=== PATIENT | female | born 1970 | race Hispanic/Latino ===

== ENCOUNTER 2017-08-31 13:35 | Observation (INO) | payer SELFPAY, OTHER ==
[2017-08-31] MEDS ORDERED: Nitroglycerin 2% Ointment 1 INCH/1 GM Packet ONE (14:08)
[2017-08-31 14:26] LABS: #Eosinphils 0.1 thou/uL (0.0-0.7); #Lymphocytes 1.6 thou/uL (1.20-3.40); #Monocytes 0.2 thou/uL (0.11-0.59); #Neutrophils 3.5 thou/uL (1.40-6.50); %Basophils 0.8 % (0.0-1.0); %Eosinophils 1.5 % (0.0-10.0); %Lymphocytes 29.8 % (21.0-51.0); %Monocytes 4.4 % (0.0-10.0); %Neutrophils 63.6 % (42.0-75.0); Hemoglobin 16.4 g/dL (12.0-16.0); Mean Corpuscular Hemoglobin 29.8 pg (27.0-31.0); Mean Corpuscular Volume 85.1 fl (81.0-99.0); Mean Platelet Volume 7.1 fL (7.4-10.4); Platelet Count 292 thou/uL (130-400); RBC Distribution Width 12.4 % (11.5-14.5); Red Blood Cell (RBC) Count 5.49 mill/uL (4.20-5.40); White Blood Cell (WBC) Count 5.4 thou/uL (4.8-10.8)
[2017-08-31 14:47] LABS: ALT (SGPT) 32 U/L (8-55); AST (SGOT) 18 U/L (5-34); Albumin 4.6 g/dL (3.5-5.0); Alkaline Phosphatase 125 U/L (40-150); Anion Gap 14 mmol/L (10-20); BUN (Urea Nitrogen) 14 mg/dL (7.0-18.7); Bilirubin, Total 0.6 mg/dL (0.2-1.2); CK (CPK) 45 U/L (29-168); Calc. Creatinine Clearance 0 mL/min (70-130); Calcium 11.1 mg/dL (7.8-10.44); Carbon Dioxide 24 mmol/L (22-29); Chloride 103 mmol/L (98-107); Estimated GFR-MDRD 87; Globulin 3.5 g/dL (2.4-3.5); Glucose 287 mg/dL (70-105); Lipase 17 U/L (8-78); Potassium 3.6 mmol/L (3.5-5.1); Protein, Total 8.1 g/dL (6.0-8.3); Sodium 137 mmol/L (136-145)
--- NOTE | 2017-08-31 14:48 | RAD ---
RADIOGRAPH CHEST 1 VIEW: HISTORY: 47-year-old female with acute chest pain and hypertension. FINDINGS: There are no air space densities, pulmonary edema, pneumothorax, or cardiomegaly. The lateral costop hrenic angles are sharp. IMPRESSION: No acute cardiopulmonary findings. jn [] POS: [facility]
[2017-08-31 14:51] LABS: CKMB 0.6 ng/mL (0-6.6); Troponin I Less than 0.010 ng/mL (< 0.028)
[2017-08-31] MEDS ORDERED: Acetaminophen 500 MG TAB ONE (15:31)
[2017-08-31] MEDS ORDERED: Dextrose 50% Abboject 50 ML SYRINGE SLOW IVP PRN (16:31)
[2017-08-31] MEDS ORDERED: Mag-Al 1200 mg/1200 mg/30 ML UDCUP PO PRN (16:31)
[2017-08-31] MEDS ORDERED: hydrALAZINE 20 MG/ML VIAL SLOW IVP PRN (16:31)
[2017-08-31] MEDS ORDERED: Ondansetron HCl/PF 4 MG/2 ML Vial IVP PRN (16:31)
[2017-08-31] MEDS ORDERED: Dextrose 5% in Water 1,000 ML IV PRN (16:31)
[2017-08-31] MEDS ORDERED: Milk Of Magnesia 30 ML UDCUP PO PRN (16:31)
[2017-08-31] MEDS ORDERED: HumaLOG 300 UNITS/3 ML VIAL SC PRN ×2 (16:31)
[2017-08-31] MEDS ORDERED: Acetaminophen 325 MG TAB PO PRN (16:31)
[2017-08-31] MEDS ORDERED: Ondansetron ODT 4 MG TAB PO PRN (16:31)
[2017-08-31 16:49] VITALS: BMI 26.6
[2017-08-31] MEDS: Sodium Chloride 0.9% 1,000 ML IV SCH (17:46)
[2017-08-31 17:49] LABS: Troponin I Less than 0.010 ng/mL (< 0.028)
[2017-08-31 18:09] LABS: Thyroid Stimulating Hormone 0.3958 uIU/mL (0.35-4.94)
[2017-08-31 18:35] LABS: Free T4 (Free Thyroxine) 1.03 ng/dL (0.70-1.48)
[2017-08-31] MEDS: Docusate 100 MG CAP PO SCH (19:43)
[2017-08-31 20:39] LABS: Troponin I Less than 0.010 ng/mL (< 0.028)
[2017-08-31] MEDS: clonazePAM 0.5 MG TAB PO PRN (20:55)
[2017-08-31] MEDS: Nitroglycerin 2% Ointment 1 INCH/1 GM Packet TOP SCH (20:58)
--- NOTE | 2017-08-31 21:06 | HP ---
PRIMARY CARE PHYSICIAN: Dr. Andrea Joel. CHIEF COMPLAINT: Generalized fatigue and malaise as well as chest pain and fluctuating blood pressur es. HISTORY OF PRESENT ILLNESS: Ms. Segura is a very pleasant 47-year-old female that has a history of hy pertension and diabetes mellitus. She says that in the last 2 weeks she has been feeling very weak. She has aches and pains across her shoulders as well as having some lower abdominal pain. She says that she had seen her primary care physician without much relief in her symptoms and when asked what made her come in today. She says that she was concerned because she started having some cramping lik e pains in her left upper chest. She also noticed that her blood pressure seems to be fluctuating, g oing up and down and she would have to take an additional blood pressure medicine to control it. She also was feeling palpitations and some nausea. She also noted some dyspnea on exertion and also fat igue when she walks and this is why she came to the ER today. She also notes that she has been on me dication for stress and anxiety. She had been on clonazepam, but she has been out of this medication for a couple of days, but does note that the medication does help her symptoms, but she wants to mitzy e sure that there was nothing else going on. The patient also was complaining of some lower abdomina l pain. She feels like there is some type of ball in her abdomen. She says she can sometimes feel i t and she also notes some pain with intercourse. She denies having any bleeding or discharge or spot ting, no pain with urination and her last menstrual cycle was about 2 years ago. She has not sought medical attention for this particular problem before. REVIEW OF SYSTEMS: Constitutional: Again, there have been no fevers, no chills, no night sweats, no weight loss. HEENT: She denies any headaches, no dizziness, but she does say sometimes she sees li ke spots in her eyes and sometimes every now and then, blurred vision, no sore throat, no rhinorrhea, no neck pain. Pulmonary: No hemoptysis, no cough, no wheezing. Cardiovascular: As the history of present illness. Gastrointestinal: She complains of some lower abdominal pain, primarily on the le ft side as well as some nausea, but no vomiting, no change in bowels. Genitourinary: No urinary fransisco quency, hematuria, no hesitancy. Neurologic: No focal weakness. She did have some numbness in her left upper extremity and a little bit of tingling, but no weakness. Musculoskeletal: She has been c omplaining of some muscle aches and pains across her upper shoulders. Extremities: There are no ski n changes. No rash. PAST MEDICAL HISTORY: Significant for hypertension and she has been diabetic for 14 years. PAST SURGICAL HISTORY: She has had a cholecystectomy as well as a . ALLERGIES: No known drug allergies. SOCIAL HISTORY: She is a nonsmoker, nondrinker. She is and has 2 children. FAMILY HISTORY: Her father had an IL at age 68. No other medical conditions that they are aware of. MEDICATIONS: Include lisinopril 10 mg daily, metformin 500 mg twice a day, glyburide 2.5 mg daily, c lonazepam p.r.n., aspirin 81 mg daily. She also takes potassium, omega 3, and vitamin D. PHYSICAL EXAMINATION: GENERAL: She is alert and oriented. She appears to be in no acute distress. VITAL SIGNS: Blood pressure was 154/89, heart rate 87, respiratory rate of 18, and temperature is 98 .2. HEENT: Her pupils are equal, round, and reactive. Extraocular muscles are intact. Her sclerae are anicteric. Throat: No erythema, no exudates. NECK: No adenopathy, no bruits. LUNGS: Clear. There was no wheezing, no rales. CARDIOVASCULAR: She had a normal S1, S2. There was no S3 or S4. No murmurs, clicks or rubs. ABDOMEN: Soft. She did have some lower abdominal tenderness, but there was no rebound or guarding. I was not able to palpate any mass. EXTREMITIES: There is no clubbing, cyanosis, no edema, no significant skin lesions except for a mild excoriation on the left lower extremity. Her pulses are palpable and neurologically the exam is non focal. LABORATORY DATA: White blood cell count is 5.4, hemoglobin 16.4, hematocrit is 46.7, platelet count is 292. Sodium 137, potassium 3.6, chloride is 103, CO2 is 24, BUN of 14, creatinine 0.72, glucose i s 287. Calcium was slightly elevated at 11.1. EKG actually was sinus rhythm. There was no ST wave changes. It was a normal EKG and her troponin w as 0.010. ASSESSMENT AND PLAN: 1. This is a 47-year-old female that presents to the emergency room with multiple somatic complaints , which are more or less nonspecific. She did, however, complain of some chest discomfort and arm pa in along with the palpitations and some dyspnea. Given that she is diabetic and also hypertensive. It does seem reasonable to rule out ischemic heart disease as she could suffer from some atypical sym ptoms. Also, concerning is the slight elevation in the calcium level, which I would not suspect, wou ld be symptomatic, but we can also check an intact PTH to screen for hyperparathyroidism. 2. Also, some of her symptoms could be associated with thyroid disease and we will screen for this a s well. 3. Hypertension. She states she has been having fluctuating blood pressures. We will continue her on her usual dose of lisinopril and monitor and also place her on p.r.n. medications. We will adjust her dose if needed. 4. Diabetes mellitus. We will hold off on the metformin, but continue the glyburide and place her o n a sliding scale insulin. For the abdominal pain and pelvic pain, we will check an abdominal and pe lvic ultrasound and she will likely need to be referred to an outpatient evaluation to a sports specialist .
[2017-09-01 05:02] LABS: Anion Gap 8 mmol/L (10-20); BUN (Urea Nitrogen) 13 mg/dL (7.0-18.7); Calc. Creatinine Clearance 117 mL/min (70-130); Calcium 9.7 mg/dL (7.8-10.44); Carbon Dioxide 24 mmol/L (22-29); Chloride 110 mmol/L (98-107); Estimated GFR-MDRD Greater than 90; Glucose 310 mg/dL (70-105); Potassium 3.9 mmol/L (3.5-5.1); Sodium 138 mmol/L (136-145)
[2017-09-01] MEDS: Nitroglycerin 2% Ointment 1 INCH/1 GM Packet TOP SCH ×2 (05:37→14:26)
[2017-09-01] MEDS: Sodium Chloride 0.9% 1,000 ML IV SCH (05:59)
[2017-09-01] MEDS ORDERED: Aspirin 325 MG TAB PO SCH (09:00)
[2017-09-01] MEDS ORDERED: Lisinopril 10 MG TAB PO SCH (09:00)
--- NOTE | 2017-09-01 09:25 | ULT ---
PELVIC SONOGRAM TRANSABDOMINAL AND TRANSVAGINAL IMAGING: Date: 09/01/17 HISTORY: Pelvic pain. FINDINGS: Urinary bladder is decompressed. Uterus has a heterogeneous echotexture and is 8.7 cm. Endometrium is 1.6 cm. Small amount of fluid is apparent within the lower uterine segment and cervical canal. Nabot hian cysts arise from the cervix. At the left uterine fundus, a heterogeneous hypoechoic nodule is 1. 8 cm. No free fluid is evident within the pelvis. Neither ovary is visualized with transabdominal or transv aginal imaging. IMPRESSION: 1. Thickened endometrium with a small amount of fluid, 2. Mild fibroid involvement of the uterus. POS: [facility]
--- NOTE | 2017-09-01 09:28 | ULT ---
ULTRASOUND ABDOMEN COMPLETE: Date: 09/01/17 HISTORY: Abdominal pain. History of prior cholecystectomy. TECHNIQUE: Luu-scale ultrasound evaluation of the liver, gallbladder, spleen, pancreas, common bile duct, kidne ys, abdominal aorta, and inferior vena cava (IVC). FINDINGS: No focal hepatic lesion. Gallbladder is surgically absent. Spleen is unremarkable. Common duct measur es greater than 1.0 cm, although this may be related to reservoir effect, in light of prior cholecyst ectomy. Pancreas is obscured from view by bowel content, limiting assessment. No acute renal patholog y. There is decreased acoustic penetration of the abdomen which does limit sensitivity of evaluation due to patient body habitus. IMPRESSION: 1. Status post cholecystectomy. 2. No focal hepatic lesion. There is a slight degree of increased echogenicity, which can be seen in the setting of hepatic steatosis and/or hepatocellular disease. Correlation with liver function enzy mes may prove useful. POS: [facility]
--- NOTE | 2017-09-01 12:40 | PDOC.PN ---
- Subjective Encounter Start Date: 09/01/17 Encounter Start Time: 12:37 Ms. Segura says that when she woke up this morning she notes a blurred vision in her right eye. She says when she turns her head, she will see double, the left eye is normal. She denies any weakness in her arms or legs. - Objective Resuscitation Status: Resuscitation Status FULL:Full Resuscitation MAR Reviewed: Yes Vital Signs & Weight: Vital Signs (12 hours) Temp Pulse Resp BP BP Pulse Ox 09/01/17 12:05 97.9 F 95 16 167/78 H 96 09/01/17 07:56 97.7 F 60 16 09/01/17 07:34 97.7 F 60 16 114/59 L 97 09/01/17 04:17 82 16 98/59 L 09/01/17 02:13 99 Weight Weight 155 lb 1.6 oz I&O: 08/31/17 09/01/17 09/02/17 06:59 06:59 06:59 Intake Total 1274 Balance 1274 Result Diagrams: 08/31/17 14:17 09/01/17 04:27 Additional Labs: Accuchecks 09/01/17 08/31/17 08/31/17 05:38 20:42 17:33 POC Glucose 266 H 241 H 223 H Phys Exam - Physical Examination HEENT: PERRLA, sclera anicteric EOMI- bilaterally Respiratory: no wheezing, no rales, no rhonchi, clear to auscultation bilateral Cardiovascular: RRR, no significant murmur, no rub Gastrointestinal: soft, non-tender, no distention, positive bowel sounds Musculoskeletal: no edema Dx/Plan (1) Blurred vision, right eye Code(s): H53.8 - OTHER VISUAL DISTURBANCES Status: Acute (2) Diabetes mellitus type 2 in nonobese Code(s): E11.9 - TYPE 2 DIABETES MELLITUS WITHOUT COMPLICATIONS Status: Acute (3) Hyperparathyroidism Code(s): E21.3 - HYPERPARATHYROIDISM, UNSPECIFIED Status: Acute (4) Hypertension Code(s): I10 - ESSENTIAL (PRIMARY) HYPERTENSION Status: Acute (5) Chest pain Code(s): R07.9 - CHEST PAIN, UNSPECIFIED Status: Acute - Plan * Blurred vision- suspect this is due to elevated blood glucose- however will check a CT scan of the brain * Chest pain- await stress test results * Elevated calcium- this is better with hydration- but her parathyroid hormone level is elevated, and there is no renal disease- she likely has Primary Hyperparathyroidism- This was discussed with the patient, and daughter helped to translate- she will need outpatient Endocrinology referral. This could also explain some of her somatic complaints * HTN- blood pressure is much improved * DM- blood glucose is elevated- will need to increase her dose of Glyburide .
--- NOTE | 2017-09-01 12:42 | NM ---
RADIONUCLIDE STRESS AND REST MYOCARDIAL PERFUSION SCAN WITH CT ATTENUATION CORRECTION AND SPECT IMAGI NG WITH LEFT VENTRICULAR WALL MOTION EVALUATION AND EJECTION FRACTION: HISTORY: Chest pain. FINDINGS: Francis protocol was used for a total test time of 7 minutes and 0 seconds. Maximum heart rate was 151 beats/minute. There is heterogeneous uptake of radiotracer throughout the left ventricular myocardium on both the s tress and rest images. No focal perfusion defect or reversibility are apparent. QGS analysis of gated SPECT images shows no focal wall motion abnormalities. TID equals 1.1. LHR equa ls 37%. Left ventricular ejection fraction is calculated at 71%. IMPRESSION: 1. Normal myocardial perfusion scan. 2. Normal LVEF. POS: [facility]
--- NOTE | 2017-09-01 13:15 | CT ---
CT HEAD NONCONTRAST DATE: 09/01/17 HISTORY: Vision abnormality. FINDINGS: No comparison. There is no evidence of acute intracranial hemorrhage or infarct. The ventricles appear normal in siz e, shape, and position. There is no mass effect or shift of midline structures. Visualized paranasal sinuses remain well aerated. IMPRESSION: No acute intracranial abnormalities are demonstrated on noncontrast CT head. POS: [facility]
[2017-09-01] MEDS: Docusate 100 MG CAP PO SCH (14:26)
[2017-09-01 15:49] VITALS: BP 146/80; TEMP 98.5
[2017-09-01] MEDS: clonazePAM 0.5 MG TAB PO PRN (16:02)
--- NOTE | 2017-09-01 23:57 | DIS ---
PRIMARY CARE PHYSICIAN: Andrea Joel M.D. DATE OF ADMISSION: 08/31/2017 DATE OF DISCHARGE: 09/01/2017 DISCHARGE DISPOSITION: Home. PRIMARY DISCHARGE DIAGNOSES: 1. Chest pain, probable noncardiac. 2. Primary hyperparathyroidism. 3. Diabetes mellitus, uncontrolled. 4. Hypertension, uncontrolled. 5. Generalized anxiety. DISCHARGE MEDICATIONS: Please note that the patient's blood pressure medication was increased to lis inopril 10 mg in the morning and 5 in the evening, glipizide was also increased to 5 mg daily. She i s to continue metformin 500 mg twice daily as well as clonazepam 0.5 mg twice daily as needed, and as pirin 81 mg daily. PROCEDURES DONE DURING ADMISSION: The patient had a CT scan of the brain which was negative. She al so had an abdominal ultrasound as well as pelvic ultrasound. The abdominal ultrasound was essentiall y negative. There was some increased echogenicity of the liver, possibly representing steatosis. Th e patient also had a pelvic ultrasound which demonstrated some thickened endometrium with small amoun t of fluid and a mild fibroid involving fibroid involvement of the uterus. The patient also had a nu clear stress test which was negative for any reversible ischemia and also had a normal ejection fract ion and the patient also had a CT scan of the brain which was negative. It was noted that the patien t's calcium on admission was 11.1 and an intact PTH was done which was elevated at 167. HOSPITAL COURSE: Ms. Segura is a pleasant 47-year-old female who was placed in observation after she was experiencing some generalized somatic complaints such as fatigue, muscle aches, and generalized w eakness. She also was having some palpitations and chest pain. She also noted fluctuations in her b lood pressure. For this reason, she was placed in observation. She was ruled out by serial cardiac enzymes which were negative. She had a nuclear stress test done to evaluate the chest pain. This wa s negative and I suspect this likely could be musculoskeletal. She also complained of some visual ch anges while she was in the hospital. A CT scan was done which was negative and it is thought that th e blurred vision that she experiences likely due to poorly controlled diabetes. For this reason, gly buride was increased from 2.5 to 5 and she was to continue metformin. In the course of her evaluatio n, it was noted that her calcium level was elevated. A PTH was done and this was also elevated and s he likely therefore has primary hyperparathyroidism as her renal function is normal. The calcium lev el improved after hydration back to 9.7. However, this is likely to be a continuing problem and for this reason, she was instructed to follow up with Endocrinology to get a parathyroid scan and she may also need to have a partial parathyroidectomy. Also, due to fluctuations in her blood pressure, her dose of lisinopril was increased from 10 mg daily to 10 mg in the morning and 5 in the evening, and she is also once again instructed to have close outpatient followup for this.
--- NOTE | 2017-09-03 13:35 | STRESS ---
Acquisition Time: 2017-09-01 10:36:17 Total Exercise Time: 00:07:00 Test Indications: CHEST PAIN Medications: Protocol: ELIZABETH Max HR: 151 BPM 86% of Pred: 174 BPM Max BP: 172/104 mmHG Max Work Load: 7.7 METS RESTING ECG: NORMAL SINUS RHYTHM AT 99 BPM WITH LEFT AXIS DEVIATION; POOR R-WAVE PROGRESSION SYMPTOMS: NONE NORMAL BP RESPONSE ECTOPY: NONE ECG STRESS: NO SIGNIFICANT CHANGES INTERPRETATION: NEGATIVE ECG/AWAIT NUCLEAR IMAGES FOR DEFINITIVE DIAGNOSIS Confirmed by SIMI VALDES ([id number]) on 09/03/2017 1:35:08 PM Referred By: Darryl CHUN Confirmed By:SIMI VALDES
--- NOTE | 2017-10-11 13:59 | EKG ---
Test Reason : CHESTPAIN Blood Pressure : / mmHG Vent. Rate : 090 BPM Atrial Rate : 090 BPM P-R Int : 196 ms QRS Dur : 092 ms QT Int : 358 ms P-R-T Axes : 035 -07 032 degrees QTc Int : 437 ms Normal sinus rhythm Normal ECG Confirmed by MICHELLE CHOUDHURY, FEI ([id number]), features editor TEX MENDOZA ([id number]) on 10/11/2017 1:59:01 PM Referred By: MICHELLE Confirmed By:FEI MARTINEZ MD
== END 2017-09-01 16:55 | disposition home or self-care (01) ==
LOC: ERS 13:35 → EDBD 15:37 → 2SW 15:37
PROVIDERS: ADMIT Internal Medicine; ATTEND Internal Medicine
DX: R07.9 Chest pain, unspecified (principal); E21.0 Primary hyperparathyroidism; E11.9 Type 2 diabetes mellitus without complications; I10 Essential (primary) hypertension; F41.1 Generalized anxiety disorder; H53.8 Other visual disturbances; Z79.84 Long term (current) use of oral hypoglycemic drugs; Z79.82 Long term (current) use of aspirin; Z79.899 Other long term (current) drug therapy
CPT/HCPCS: 36415; 36416; 70450; 71045; 76700; 76856; 78452; 80048; 80053; 82553; 83690; 83880; 83970; 84439; 84443; 84484; 85025; 85652; 93005; 93017; 94760; 96360; 96361; A9500; G0378

== ENCOUNTER 2019-11-17 01:26 | Emergency (ER) | payer SELFPAY ==
[2019-11-17 02:18] LABS: #Basophils 0.1 thou/uL (0.0-0.2); #Eosinphils 0.2 thou/uL (0.0-0.7); #Monocytes 0.3 thou/uL (0.11-0.59); #Neutrophils 3.2 thou/uL (1.40-6.50); %Basophils 1.7 % (0.0-1.0); %Eosinophils 3.3 % (0.0-10.0); %Lymphocytes 43.7 % (21.0-51.0); %Monocytes 4.8 % (0.0-10.0); %Neutrophils 46.5 % (42.0-75.0); Hemoglobin 14.9 g/dL (12.0-16.0); Mean Corpuscular HGB CONC 35.3 g/dL (32.0-36.0); Mean Corpuscular Hemoglobin 30.7 pg (27.0-31.0); Mean Corpuscular Volume 87.1 fL (78.0-98.0); Mean Platelet Volume 7.7 fL (7.4-10.4); Platelet Count 279 thou/uL (130-400); RBC Distribution Width 12.1 % (11.5-14.5); Red Blood Cell (RBC) Count 4.84 mill/uL (4.20-5.40); White Blood Cell (WBC) Count 6.9 thou/uL (4.8-10.8)
[2019-11-17 02:45] LABS: ALT (SGPT) 57 U/L (8-55); AST (SGOT) 22 U/L (5-34); Albumin 4.6 g/dL (3.5-5.0); Alkaline Phosphatase 109 U/L (40-110); Anion Gap 13 mmol/L (10-20); BUN (Urea Nitrogen) 12 mg/dL (7.0-18.7); Bilirubin, Total 0.3 mg/dL (0.2-1.2); Calc. Creatinine Clearance 0 mL/min (70-130); Calcium 11.2 mg/dL (7.8-10.44); Carbon Dioxide 26 mmol/L (22-29); Chloride 100 mmol/L (98-107); Estimated GFR-MDRD 82; Globulin 3.4 g/dL (2.4-3.5); Glucose 394 mg/dL (70-105); Potassium 3.7 mmol/L (3.5-5.1); Sodium 135 mmol/L (136-145)
[2019-11-17] MEDS ORDERED: Acetaminophen 500 MG TAB ONE ×2 (03:48)
[2019-11-17 06:01] LABS: Troponin I 0.011 ng/mL (< 0.028)
--- NOTE | 2019-11-17 09:08 | RAD ---
CHEST ONE VIEW: History: Left sided chest pain Comparison: 08-31-18 IMPRESSION: No acute cardiopulmonary abnormality. COMMENTS: The lungs are clear. Heart size is normal. No acute osseous abnormality is evident. POS: [facility]
--- NOTE | 2019-11-22 10:17 | EKG ---
Test Reason : Blood Pressure : / mmHG Vent. Rate : 092 BPM Atrial Rate : 092 BPM P-R Int : 188 ms QRS Dur : 088 ms QT Int : 364 ms P-R-T Axes : 037 -05 046 degrees QTc Int : 450 ms Normal sinus rhythm Cannot rule out Anterior infarct , age undetermined Abnormal ECG Confirmed by TEODORA VARGAS ([id number]), clinical editor BRIDGETT HOLMAN ([id number]) on 11/22/2019 10:17:26 AM Referred By: Confirmed By:TEODORA VARGAS
== END 2019-11-17 06:17 | disposition home or self-care (01) ==
LOC: ERS 01:26
DX: R07.9 Chest pain, unspecified (principal); I10 Essential (primary) hypertension; E11.9 Type 2 diabetes mellitus without complications; F41.9 Anxiety disorder, unspecified; Z79.82 Long term (current) use of aspirin; Z79.899 Other long term (current) drug therapy
CPT/HCPCS: 36415; 71045; 80053; 84484; 85025; 93005

== ENCOUNTER 2020-02-25 06:00 | Day surgery (SDC) | payer OTHER, SELFPAY ==
[2020-02-22 14:23] VITALS: BMI 28.1
[2020-02-25] MEDS ORDERED: Fentanyl 250 MCG/5 ML VIAL ONE (06:33)
[2020-02-25] MEDS ORDERED: Lidocaine 4% Topical Sol 50 ML BOT ONE (06:33)
[2020-02-25] MEDS ORDERED: Albuterol Sulfate HFA (OR ONLY) ONE (06:33)
[2020-02-25] MEDS ORDERED: Lidocaine 1% w/Epinephrine 1:100K 20 ML VIAL ONE (06:48)
[2020-02-25] MEDS ORDERED: Midazolam HCl 2 mg/2 ml Vial ONE (07:04)
[2020-02-25] MEDS ORDERED: Acetaminophen 500 MG TAB ONE (07:05)
[2020-02-25] MEDS ORDERED: EPHEDRINE 25 MG/5 ML SYRINGE ONE (10:21)
[2020-02-25] MEDS ORDERED: PHENYLEPHRINE-NS 100 MCG/ML 10 ML SYRINGE ONE (10:21)
[2020-02-25] MEDS ORDERED: Rocuronium Bromide 10 MG/ML (10ML VIAL) ONE (10:21)
[2020-02-25] MEDS ORDERED: Ondansetron PF 4 MG/2 ML Vial ONE ×2 (10:21→10:49)
[2020-02-25] MEDS ORDERED: Ketorolac Tromethamine 30 MG/ML VIAL ONE (10:21)
[2020-02-25] MEDS ORDERED: PROPOFOL 200 MG/20 ML VIAL ONE (10:21)
[2020-02-25] MEDS ORDERED: Succinylcholine Chloride 20 MG/ML 10 ml SYRINGE FS ONE (10:21)
[2020-02-25] MEDS ORDERED: Lidocaine 1% PF 5 ML VIAL ONE (10:21)
[2020-02-25] MEDS ORDERED: Fentanyl 100 MCG/2 ML VIAL ONE (10:40)
[2020-02-25] MEDS ORDERED: Hydrocodone-Acetamin 15 ML UDCUP ONE (12:29)
--- NOTE | 2020-02-25 13:21 | EKG ---
Test Reason : PREOP Blood Pressure : / mmHG Vent. Rate : 083 BPM Atrial Rate : 083 BPM P-R Int : 198 ms QRS Dur : 092 ms QT Int : 374 ms P-R-T Axes : 035 000 056 degrees QTc Int : 439 ms Normal sinus rhythm Normal ECG No previous ECGs available Confirmed by HAYLEY QUISPE ([id number]) on 02/25/2020 1:21:28 PM Referred By: CURT Confirmed By:HAYLEY QUISPE
--- NOTE | 2020-02-26 14:26 | OP ---
DATE OF PROCEDURE: 02/25/2020 PREOPERATIVE DIAGNOSES: 1. Primary hyperparathyroidism. 2. Parathyroid adenoma. 3. Anxiety. POSTOPERATIVE DIAGNOSES: 1. Primary hyperparathyroidism. 2. Parathyroid adenoma. 3. Anxiety. PROCEDURES PERFORMED: 1. Anterior neck dissection. 2. Parathyroidectomy. PROCEDURE IN DETAIL: After consent was obtained, the patient was identified, brought to the operating room and placed on the operating room table in supine position. General laryngeal nerve monitoring and endotracheal tube were placed and documented to be functioning and the patient was positioned for surgery. The neck was prepped and draped in a sterile fashion. The natural skin crease in the lower neck was infiltrated with 1% lidocaine and 1:200,000 epinephrine. Previous Radian parathyroid scan revealed an abnormality in the midportion of the anterior neck. We made an incision and carried it down through the skin, subcutaneous tissues, and platysma. Subplatysmal flaps were elevated inferiorly and superiorly and a self-retaining retractor was placed. We then the strap muscles bilaterally and retracted them. We then the strap muscles from the thyroid capsule and was able to mobilize the thyroid medially as the strap muscles and were retracted laterally. We then performed a systematic search of the anterior neck and removed. I identified both recurrent laryngeal nerves and both parathyroids and the inferior parathyroid gland. No dominant parathyroid adenoma as had been imaged several years ago was identified. The dissection was carried down inferior to the mediastinum and portion of the thymus was removed as well. Dissection extended inferiorly to the subclavian artery and both sternocleidomastoid muscles. No other abnormalities were identified. The recurrent laryngeal nerves were preserved and inferior parathyroid glands were removed and sent for histologic evaluation. Hemostasis was obtained. Examination of additional parathyroid glands failed to reveal any abnormalities. The wound was closed in layers with the strap muscles being reapproximated as well as the platysma and the skin was closed with an absorbable running permanent suture. Steri-Strips were applied as well as a sterile dressing. The patient was awakened, extubated, and taken to recovery room in a stable condition prior to discharge home. Job ID: [id number]
== END 2020-02-25 13:25 | disposition home or self-care (01) ==
LOC: SDC 06:00
PROVIDERS: ATTEND Specialist
PROC: 0GTP0ZZ Resection of Left Inferior Parathyroid Gland, Open Approach (ICD-10-PCS; principal; 2020-02-25)
PROC: 0GTN0ZZ Resection of Right Inferior Parathyroid Gland, Open Approach (ICD-10-PCS; principal; 2020-02-25)
DX: D35.1 Benign neoplasm of parathyroid gland (principal); E21.0 Primary hyperparathyroidism; F41.9 Anxiety disorder, unspecified; I10 Essential (primary) hypertension; E11.9 Type 2 diabetes mellitus without complications; Z79.82 Long term (current) use of aspirin; Z79.84 Long term (current) use of oral hypoglycemic drugs; Z79.899 Other long term (current) drug therapy; Z88.5 Allergy status to narcotic agent
CPT/HCPCS: 36416; 88305; 88331; 93005; 93010; J1885; J2250; J2405; J2704; J3010

== ENCOUNTER 2020-04-20 10:37 | Observation (INO) | payer SELFPAY ==
[2020-04-20] MEDS ORDERED: Aspirin 325 MG TAB ONE (11:13)
[2020-04-20 11:23] LABS: #Basophils 0.1 thou/uL (0.0-0.2); #Eosinphils 0.1 thou/uL (0.0-0.7); #Lymphocytes 1.8 thou/uL (1.20-3.40); #Monocytes 0.3 thou/uL (0.11-0.59); #Neutrophils 2.6 thou/uL (1.40-6.50); %Basophils 1.6 % (0.0-1.0); %Eosinophils 2.5 % (0.0-10.0); %Lymphocytes 36.7 % (21.0-51.0); %Monocytes 5.7 % (0.0-10.0); %Neutrophils 53.6 % (42.0-75.0); Hemoglobin 14.3 g/dL (12.0-16.0); Mean Corpuscular Hemoglobin 30.9 pg (27.0-31.0); Mean Corpuscular Volume 88.4 fL (78.0-98.0); Mean Platelet Volume 7.5 fL (7.4-10.4); Platelet Count 293 thou/uL (130-400); RBC Distribution Width 11.7 % (11.5-14.5); Red Blood Cell (RBC) Count 4.62 mill/uL (4.20-5.40); White Blood Cell (WBC) Count 4.9 thou/uL (4.8-10.8)
--- NOTE | 2020-04-20 11:39 | RAD ---
EXAM: CHEST ONE VIEW HISTORY: Chest pain. High blood pressure and diabetes. COMPARISON: 11/17/2019 FINDINGS: The cardiac silhouette and pulmonary vasculature are within normal limits. The lungs are clear. The o sseous structures are intact. IMPRESSION: No acute cardiopulmonary process.
[2020-04-20 12:03] LABS: ALT (SGPT) 19 U/L (8-55); AST (SGOT) 11 U/L (5-34); Alkaline Phosphatase 107 U/L (40-110); Anion Gap 13 mmol/L (10-20); BUN (Urea Nitrogen) 11 mg/dL (7.0-18.7); Bilirubin, Total 0.6 mg/dL (0.2-1.2); Calc. Creatinine Clearance 0 mL/min (70-130); Calcium 10.2 mg/dL (7.8-10.44); Carbon Dioxide 26 mmol/L (22-29); Chloride 102 mmol/L (98-107); Estimated GFR-MDRD 84; Glucose 363 mg/dL (70-105); Potassium 3.9 mmol/L (3.5-5.1); Protein, Total 7.1 g/dL (6.0-8.3); Sodium 137 mmol/L (136-145)
[2020-04-20] MEDS ORDERED: Acetaminophen 325 MG TAB PO PRN (12:11)
[2020-04-20] MEDS ORDERED: Ondansetron ODT 4 MG TAB PO PRN (12:11)
[2020-04-20 12:22] LABS: Albumin 3.9 g/dL (3.5-5.0); Globulin 3.1 g/dL (2.4-3.5)
[2020-04-20] MEDS ORDERED: HumaLOG 300 UNITS/3 ML VIAL SC PRN (12:38)
[2020-04-20] MEDS ORDERED: Dextrose 50% Abboject 50 ML SYRINGE SLOW IVP PRN (12:38)
[2020-04-20] MEDS ORDERED: Dextrose 5% in Water 1,000 ML IV PRN (12:38)
--- NOTE | 2020-04-20 13:21 | PDOC.FPRHP ---
- History of Present Illness Chief Complaint: Chest Pain History of Present Illness: Pt is a 49 yo F with pmh of IDDM2, HTN, Hyperparathyroidism 2/2 Midline Adenoma with Hypercalcemia, Anxiety, HLD, Migraine, Generalized weakness, Panic Disorder who presents for chest pain. She was driving her daughter to work and had co ffee. She says after that she felt pressure in her stomach and she felt faint. She said she pulled into a parking spot and took Lisinopril and Propanolol (20 mg tab veces daily) and Clonazepam. She says she checked her blood pressure (160/103) and it was high, so she called EMS. She had similar pain 2-3 years ago. When she had this episode they thought it was related to stress and gave her anxiety medication at that time. The pain feels like a pressure in her upper abdomen, where she feels short of breath. The pain goes to to her back and left side. The pain previously was a 8-9/10, now the pain is 0/10 The pain was associated with nausea and dizziness. She says she has no pain in her abdomen now it is in her head and knee that feels like tension. The pain was improved by what she was given by EMS: nitro and zofran. She states she had a stress test 3-4 years ago. She states she is never had to have stents or surgeries does not believe that she has any coronary disease at this time. ED Course: EMS gave Zofran and Nitro paste In the ED, she was given ASA. - Allergies/Adverse Reactions Allergies Allergy/AdvReac Type Severity Reaction Status Date / Time morphine Allergy Intermediate Rash Verified 02/22/20 14:17 - Home Medications Medication Instructions Recorded Confirmed Type Lisinopril [Zestril] 20 mg PO DAILY 08/31/17 04/20/20 History metFORMIN [Glucophage] 1,000 mg PO BID 08/31/17 04/20/20 History clonazePAM [Klonopin] 0.5 mg PO BID PRN #30 tab 09/01/17 04/20/20 Rx Aspirin [Aspirin EC] 81 mg PO QAM 02/22/20 04/20/20 History Propranolol HCl [Inderal] 20 mg PO PRN PRN 02/22/20 04/20/20 History glipiZIDE [Glucotrol XL] 5 mg PO BID 02/22/20 04/20/20 History Insulin Glargine,Hum.Rec.Anlog 24 units SQ QAM 04/20/20 04/20/20 History [Lantus] hydrOXYzine HCl [Hydroxyzine HCl] 25 mg PO Q6H PRN 04/20/20 04/20/20 History - History PMHx: IDDM2, HTN, Hyperparathyroidism 2/2 Midline Adenoma with Hypercalcemia, Anxiety, HLD, Migraine, Panic Disorder PSHx: Thyroidy Surgery (02/24), x2 20 years ago, Cholecystecotomy as a teen FHx: Father: Heart Attack from at 63 years of age, Brother: Cirrhosis Social: No alcohol, tobacco, or recreational drugs - Review of Systems General: reports: weight/appetite/sleep changes (She has lost 14 lbs in 6 pains). denies: fever/chills Eyes: denies: vision changes ENT: denies: nasal congestion, rhinorrhea Respiratory: denies: cough, shortness of breath Cardiovascular: denies: chest pain, edema Gastrointestinal: reports: nausea (for 4 days after eating greasy foods). denies: vomiting, diarrhea, constipation, abdominal pain Genitourinary: denies: dysuria Skin: reports: other (discoloration of the right foot when something fell on her foot). denies: rashes Musculoskeletal: reports: pain (She has muscular pain). denies: tenderness Neurological: reports: numbness (in her feet due to diabetes). denies: weakness Psychological: reports: anxiety - Vital signs BP: 146/91 HR: 74 RR: 16 Pox: 97% on RA Wt: 65.77 kg Temp: 98.9 - Physical Exam Constitutional: NAD HEENT: normocephalic and atraumatic, PERRLA, EOMI, conjunctiva clear, no scleral icterus, normal nasal mucosa, MMM, oropharynx clear Neck: supple Chest: no-tender to palpation Heart: RRR, normal S1/S2 Lungs: CTAB, no respiratory distress, good air movement, no rales/rhonchi, no wheezing Abdomen: soft, non-tender Musculoskeletal: normal structure, normal tone Neurological: no focal deficit, CN II-XII intact, normal sensation Skin: no rash/lesions, good turgor Heme/Lymphatic: no unusual bruising or bleeding Psychiatric: normal mood and affect FMR H&P: Results - Labs Result Diagrams: 04/20/20 11:11 04/20/20 11:11 Lab results: WBC 4.9 thou/uL (4.8-10.8) 04/20/20 11:11 Hgb 14.3 g/dL (12.0-16.0) 04/20/20 11:11 Hct 40.9 % (36.0-47.0) 04/20/20 11:11 MCV 88.4 fL (78.0-98.0) 04/20/20 11:11 Plt Count 293 thou/uL (130-400) 04/20/20 11:11 Neutrophils % 53.6 % (42.0-75.0) 04/20/20 11:11 Sodium 137 mmol/L (136-145) 04/20/20 11:11 Potassium 3.9 mmol/L (3.5-5.1) 04/20/20 11:11 Chloride 102 mmol/L (98-107) 04/20/20 11:11 Carbon Dioxide 26 mmol/L (22-29) 04/20/20 11:11 BUN 11 mg/dL (7.0-18.7) 04/20/20 11:11 Creatinine 0.74 mg/dL (0.6-1.1) 04/20/20 11:11 Glucose 363 mg/dL (70-105) H 04/20/20 11:11 Calcium 10.2 mg/dL (7.8-10.44) 04/20/20 11:11 Total Bilirubin 0.6 mg/dL (0.2-1.2) 04/20/20 11:11 AST 11 U/L (5-34) 04/20/20 11:11 ALT 19 U/L (8-55) 04/20/20 11:11 Alkaline Phosphatase 107 U/L (40-110) 04/20/20 11:11 Serum Total Protein 7.1 g/dL (6.0-8.3) 04/20/20 11:11 Albumin 3.9 g/dL (3.5-5.0) 04/20/20 11:11 - EKG Interpretation EKG: No ST changes FMR H&P: A/P - Problem List (1) HLD (hyperlipidemia) Current Visit: Yes Status: Acute Code(s): E78.5 - HYPERLIPIDEMIA, UNSPECIFIED (2) Anxiety Current Visit: Yes Status: Acute Code(s): F41.9 - ANXIETY DISORDER, UNSPECIFIED (3) Migraine Current Visit: Yes Status: Acute Code(s): G43.909 - MIGRAINE, UNSP, NOT INTR ACTABLE, WITHOUT STATUS MIGRAINOSUS (4) Panic disorder Current Visit: Yes Status: Acute Code(s): F41.0 - PANIC DISORDER [EPISODIC PAROXYSMAL ANXIETY] (5) Chest pain Current Visit: No Status: Acute Code(s): R07.9 - CHEST PAIN, UNSPECIFIED (6) Diabetes mellitus type 2 in nonobese Current Visit: No Status: Acute Code(s): E11.9 - TYPE 2 DIABETES MELLITUS WITHOUT COMPLICATIONS (7) Hyperparathyroidism Current Visit: No Status: Acute Code(s): E21.3 - HYPERPARATHYROIDISM, UNSPECIFIED (8) Hypertension Current Visit: No Status: Acute Code(s): I10 - ESSENTIAL (PRIMARY) HYPERTENSION - Plan Pt is a 49 yo F with pmh of IDDM2, HTN, Hyperparathyroidism 2/2 Midline Adenoma with Hypercalcemia, Anxiety, HLD, Migraine, Generalized weakness, Panic Disorder who presents for chest pain. 1. Atypical Chest Pain Upper abdomen, pressure, radiates to back & left chest * Improved with Nitro & Zofran * Trop: < 0.01, will trend * EKG: No ST changes * HEART Score: 2 * D-dimer ordered for suspicious history * Lipase & Amylase order * Will get stress tomorrow. 2. IDDM2 Continue home medication: Lantus, Metformin, Glipizide * Will hold Metformin & Glipizide in the am * SSI, mild * Glucose checks ACHS 3. HTN Continue home medication: Lisinopril * Will continue to monitor 4. Hyperparathyroidism 2/2 Midline Adenoma with Hypercalcemia * Both inferior parathyroid glands were removed * Pt no longer has hypercalcemia 5. Anxiety Continue home mediation: Klonopin and Hydroxyzine 6. HLD Lipid Panel: Chol: 200, Tri, HDL: 50, LDL: 125 7.Migraine Not currently on medication * Will monitor 8. Weight Loss 14 lbs in 6 months * She is concerned * Labs are normal * Should follow up outpatient for monitoring Code Status: Full Diet: CC, HH IVF: SL DVT PPx: Lovenox GI PPx: None PCP: GILMA Mar Dispo: Admit to tele obs for stress, LOS < 48H. FMR H&P: Upper Level - Plan Date/Time: 04/20/20 1319 I, [], have evaluated this patient and agree with findings/plan as outlined by marketing pr intern resident. Pertinent changes/additions are listed here. Addendum - Attending - Attending Attestation Date/Time: 04/20/20 8120 I personally evaluated the patient and discussed the management with Dr. Oconnor. I agree with the History, Examination, Assessment and Plan documented above with any addition or exceptions noted below. Patient admits with abdominal pain that radiates to the back and into the chest. Trending cardiac enzymes. Planning for stress test to further evaluate. Starting statin.
[2020-04-20 14:43] LABS: Troponin I Less than 0.010 ng/mL (< 0.028)
[2020-04-20] MEDS ORDERED: HumaLOG 300 UNITS/3 ML VIAL SC SCH (15:00)
[2020-04-20] MEDS ORDERED: Enoxaparin Sodium 40 MG/0.4 ML SYRINGE SC SCH (15:00)
[2020-04-20] MEDS ORDERED: hydrOXYzine 25 MG TAB PO PRN (15:08)
[2020-04-20] MEDS ORDERED: Atorvastatin Calcium 40 MG TAB PO SCH (15:45)
[2020-04-20] MEDS ORDERED: Enoxaparin Sodium 40 MG/0.4 ML SYRINGE ONE (16:12)
[2020-04-20] MEDS ORDERED: HumaLOG 300 UNITS/3 ML VIAL ONE (16:12)
[2020-04-20] MEDS ORDERED: metFORMIN 500 MG TAB PO SCH (17:00)
[2020-04-20 17:21] VITALS: BMI 23.2
[2020-04-20] MEDS: clonazePAM 0.5 MG TAB PO PRN (18:02)
[2020-04-20 18:07] LABS: Troponin I Less than 0.010 ng/mL (< 0.028)
[2020-04-20] MEDS: Atorvastatin Calcium 40 MG TAB PO SCH (21:35)
[2020-04-21 03:48] LABS: SARS-CoV-2 MS2 Positive; SARS-CoV-2 N Gene Negative; SARS-CoV-2 S Gene Negative; SARS-CoV-2 by NAA Not Detected (NotDetected); SARS-CoV-2 orf1ab Negative
[2020-04-21 04:35] LABS: #Basophils 0.1 thou/uL (0.0-0.2); #Eosinphils 0.2 thou/uL (0.0-0.7); #Lymphocytes 3.6 thou/uL (1.20-3.40); #Monocytes 0.5 thou/uL (0.11-0.59); #Neutrophils 2.9 thou/uL (1.40-6.50); %Basophils 1.8 % (0.0-1.0); %Eosinophils 2.8 % (0.0-10.0); %Lymphocytes 49.2 % (21.0-51.0); %Monocytes 6.6 % (0.0-10.0); %Neutrophils 39.5 % (42.0-75.0); Hemoglobin 13.6 g/dL (12.0-16.0); Mean Corpuscular HGB CONC 34.7 g/dL (32.0-36.0); Mean Corpuscular Hemoglobin 30.6 pg (27.0-31.0); Mean Corpuscular Volume 88.2 fL (78.0-98.0); Mean Platelet Volume 7.5 fL (7.4-10.4); Platelet Count 321 thou/uL (130-400); RBC Distribution Width 11.9 % (11.5-14.5); Red Blood Cell (RBC) Count 4.46 mill/uL (4.20-5.40); White Blood Cell (WBC) Count 7.2 thou/uL (4.8-10.8)
[2020-04-21 04:54] LABS: Anion Gap 13 mmol/L (10-20); BUN (Urea Nitrogen) 17 mg/dL (7.0-18.7); Calc. Creatinine Clearance 0 mL/min (70-130); Calcium 10.5 mg/dL (7.8-10.44); Carbon Dioxide 25 mmol/L (22-29); Chloride 105 mmol/L (98-107); Estimated GFR-MDRD 86; Glucose 332 mg/dL (70-105); Sodium 139 mmol/L (136-145)
--- NOTE | 2020-04-21 06:57 | PDOC.FM ---
- Subjective Subjective: Pt states that her anxiety is uncontrolled. She feels her heart racing. She has no pain this morning. - Objective MAR Reviewed: Yes Vital Signs & Weight: Vital Signs (12 hours) Temp Pulse Resp BP Pulse Ox 04/21/20 03:16 98.3 F 74 17 107/63 97 04/20/20 20:00 98.2 F 78 16 130/81 97 Weight Weight 145.3 g I&O: 04/19/20 04/20/20 04/21/20 06:59 06:59 06:59 Intake Total 480 Balance 480 Result Diagrams: 04/21/20 04:04 04/21/20 04:04 EKG Reviewed by me: Yes (SR 80) Phys Exam - Physical Examination Constitutional: NAD HEENT: moist MMs, sclera anicteric Neck: supple Respiratory: no wheezing, no rales, no rhonchi, clear to auscultation bilateral Cardiovascular: RRR, no significant murmur Gastrointestinal: soft, non-tender, positive bowel sounds Musculoskeletal: no edema, pulses present Neurological: moves all 4 limbs Lymphatic: no nodes Dx/Plan (1) HLD (hyperlipidemia) Code(s): E78.5 - HYPERLIPIDEMIA, UNSPECIFIED Status: Acute (2) Anxiety Code(s): F41.9 - ANXIETY DISORDER, UNSPECIFIED Status: Acute (3) Migraine Code(s): G43.909 - MIGRAINE, UNSP, NOT INTRACTABLE, WITHOUT STATUS MIGRAINOSUS Status: Acute (4) Panic disorder Code(s): F41.0 - PANIC DISORDER [EPISODIC PAROXYSMAL ANXIETY] Status: Acute (5) Chest pain Code(s): R07.9 - CHEST PAIN, UNSPECIFIED Status: Acute (6) Diabetes mellitus type 2 in nonobese Code(s): E11.9 - TYPE 2 DIABETES MELLITUS WITHOUT COMPLICATIONS Status: Acute (7) Hyperparathyroidism Code(s): E21.3 - HYPERPARATHYROIDISM, UNSPECIFIED Status: Acute (8) Hypertension Code(s): I10 - ESSENTIAL (PRIMARY) HYPERTENSION Status: Acute - Plan Plan: Pt is a 49 yo F with pmh of IDDM2, HTN, Hyperparathyroidism 2/2 Midline Adenoma with Hypercalcemia, Anxiety, HLD, Migraine, Generalized weakness, Panic Disorder who presents for chest pain. 1. Atypical Chest Pain Upper abdomen, pressure, radiates to back & left chest * Improved with Nitro & Zofran * Trop: < 0.01 x2 * EKG: No ST changes * HEART Score: 2 * D-dimer ordered for suspicious history * Lipase & Amylase order * Will get stress tomorrow. 2. IDDM2 Continue home medication: Lantus, Metformin, Glipizide * Will hold Metformin & Glipizide in the am * SSI, mild * Glucose checks ACHS 3. HTN Continue home medication: Lisinopril * Will continue to monitor 4. Hyperparathyroidism 2/2 Midline Adenoma with Hypercalcemia * Both inferior parathyroid glands were removed * Pt no longer has hypercalcemia 5. Anxiety Continue home mediation: Klonopin and Hydroxyzine 6. HLD Lipid Panel: Chol: 200, Tri, HDL: 50, LDL: 125 7.Migraine Not currently on medication * Will monitor 8. Weight Loss 14 lbs in 6 months * She is concerned * Labs are normal * Should follow up outpatient for monitoring Code Status: Full Diet: CC, HH IVF: SL DVT PPx: Lovenox GI PPx: None PCP: GILMA Mar Dispo: Stress today. Held metformin & glipizide. Will d/c if normal. Adding on Sertraline Addendum - Attending - Attending Attestation Date/Time: 04/21/20 0411 I personally evaluated the patient and discussed the management with Dr. Oconnor. I agree with the History, Examination, Assessment and Plan documented above with any addition or exceptions noted below. The patient is very anxious this morning. Adding SSRI, recommended propranolol regularly. If stress test is negative, will d/c home.
[2020-04-21] MEDS ORDERED: FLU VACC QS2020-21(6MOS UP)/PF 60 MCG/0.5 ML SYRINGE IM ONE (09:00)
[2020-04-21] MEDS ORDERED: Insulin Glargine 24 UNITS in Pre-Filled Syringe 1 EACH SC SCH (09:00)
[2020-04-21] MEDS ORDERED: Insulin Glargine 28 UNITS in Pre-Filled Syringe 1 EACH SC SCH (09:45)
[2020-04-21] MEDS: Enoxaparin Sodium 40 MG/0.4 ML SYRINGE SC SCH (13:17)
[2020-04-21] MEDS: Lisinopril 20 MG TAB PO SCH (13:18)
[2020-04-21] MEDS: Aspirin 81 mg Enteric Coated Tablet PO SCH (13:18)
[2020-04-21] MEDS: clonazePAM 0.5 MG TAB PO PRN (17:36)
[2020-04-21] MEDS: HumaLOG 300 UNITS/3 ML VIAL SC PRN (17:36)
[2020-04-21] MEDS: Atorvastatin Calcium 40 MG TAB PO SCH (21:09)
[2020-04-22] MEDS: HumaLOG 300 UNITS/3 ML VIAL SC PRN (06:19)
--- NOTE | 2020-04-22 06:54 | PDOC.FM ---
- Subjective Subjective: She is doing well and she is not having any anxiety this morning. We discussed that she does not need to take the propanolol prn. She is complaining of left mid-axillary rib pain. - Objective MAR Reviewed: Yes Vital Signs & Weight: Vital Signs (12 hours) Temp Pulse Resp BP Pulse Ox 04/22/20 04:00 97.7 F 65 20 101/59 L 96 04/22/20 01:12 98 04/22/20 00:00 66 04/21/20 19:26 98.7 F 82 16 130/77 98 Weight Weight 66.224 kg I&O: 04/20/20 04/21/20 04/22/20 06:59 06:59 06:59 Intake Total 480 480 Balance 480 480 Result Diagrams: 04/21/20 04:04 04/21/20 04:04 EKG Reviewed by me: Yes (SR 60-70s ST changes unchanged from previous) Phys Exam - Physical Examination Constitutional: NAD HEENT: moist MMs, sclera anicteric Neck: supple Respiratory: no wheezing, no rales, no rhonchi, clear to auscultation bilateral Cardiovascular: RRR, no significant murmur Gastrointestinal: soft, non-tender Musculoskeletal: no edema, pulses present Neurological: moves all 4 limbs Lymphatic: no nodes Psychiatric: normal affect Skin: no rash Dx/Plan (1) HLD (hyperlipidemia) Code(s): E78.5 - HYPERLIPIDEMIA, UNSPECIFIED Status: Acute (2) Anxiety Code(s): F41.9 - ANXIETY DISORDER, UNSPECIFIED Status: Acute (3) Migraine Code(s): G43.909 - MIGRAINE, UNSP, NOT INTRACTABLE, WITHOUT STATUS MIGRAINOSUS Status: Acute (4) Panic disorder Code(s): F41.0 - PANIC DISORDER [EPISODIC PAROXYSMAL ANXIETY] Status: Acute (5) Chest pain Code(s): R07.9 - CHEST PAIN, UNSPECIFIED Status: Acute (6) Diabetes mellitus type 2 in nonobese Code(s): E11.9 - TYPE 2 DIABETES MELLITUS WITHOUT COMPLICATIONS Status: Acute (7) Hyperparathyroidism Code(s): E21.3 - HYPERPARATHYROIDISM, UNSPECIFIED Status: Acute (8) Hypertension Code(s): I10 - ESSENTIAL (PRIMARY) HYPERTENSION Status: Acute - Plan Plan: Pt is a 49 yo F with pmh of IDDM2, HTN, Hyperparathyroidism 2/2 Midline Adenoma with Hypercalcemia, Anxiety, HLD, Migraine, Generalized weakness, Panic Disorder who presents for chest pain. 1. Atypical Chest Pain Upper abdomen, pressure, radiates to back & left chest * Improved with Nitro & Zofran * Trop: < 0.01 x2 * EKG: No ST changes * HEART Score: 2 * D-dimer ordered for suspicious history * Lipase & Amylase order * Will await stress results 2. IDDM2 Continue home medication: Lantus, Metformin, Glipizide * Will hold Metformin & Glipizide in the am * SSI, mild * Glucose checks ACHS 3. HTN Continue home medication: Lisinopril * Will continue to monitor 4. Hyperparathyroidism 2/2 Midline Adenoma with Hypercalcemia * Both inferior parathyroid glands were removed * Pt no longer has hypercalcemia 5. Anxiety Continue home mediation: Klonopin and Hydroxyzine -Started sertraline yesterday -Propanolol 10 mg Daily 6. HLD Lipid Panel: Chol: 200, Tri, HDL: 50, LDL: 125 7.Migraine Not currently on medication * Will monitor 8. Weight Loss 14 lbs in 6 months * She is concerned * Labs are normal * Should follow up outpatient for monitoring Code Status: Full Diet: CC, HH IVF: SL DVT PPx: Lovenox GI PPx: None PCP: GILMA Mar Dispo: Will await results of stress. Addendum - Attending - Attending Attestation Date/Time: 04/22/20 1623 I personally evaluated the patient and discussed the management with Dr. Oconnor. I agree with the History, Examination, Assessment and Plan documented above with any addition or exceptions noted below. Patient is stable for d/c. Ok to f/u outpt for stress test results.
[2020-04-22] MEDS ORDERED: Propranolol 10 MG TAB PO SCH (09:00)
[2020-04-22] MEDS ORDERED: Insulin Glargine 30 UNITS in Pre-Filled Syringe 1 EACH SC SCH (09:00)
[2020-04-22] MEDS ORDERED: Insulin Glargine 28 UNITS in Pre-Filled Syringe 1 EACH SC SCH (09:00)
[2020-04-22] MEDS: Enoxaparin Sodium 40 MG/0.4 ML SYRINGE SC SCH (09:19)
[2020-04-22] MEDS: Aspirin 81 mg Enteric Coated Tablet PO SCH (09:19)
[2020-04-22] MEDS: Lisinopril 20 MG TAB PO SCH (09:19)
--- NOTE | 2020-04-22 10:40 | RAD ---
EXAM: Single view of the chest HISTORY: Midaxillary left chest pain COMPARISON: None FINDINGS: Single left lateral decubitus view of the chest shows a normal sized cardiomediastinal silh ouette. There appears to be a tiny left pneumothorax. There is no evidence of consolidation, mass, or pleural effusion. No acute osseous abnormality. IMPRESSION: Small left pneumothorax
--- NOTE | 2020-04-22 11:37 | RAD ---
EXAM: Chest 2 views: HISTORY: Pneumothorax on decubitus film COMPARISON: 04/22/2020 FINDINGS: There is a normal-sized cardiomediastinal silhouette. The pneumothorax seen on the decubitus film ca nnot be appreciated on this upright exam. There is no evidence of consolidation, mass, or pleural effusion. No acute osseous abnormality. IMPRESSION: No evidence of acute cardiopulmonary disease
[2020-04-22] MEDS: clonazePAM 0.5 MG TAB PO PRN (11:41)
[2020-04-22 11:57] VITALS: BP 145/75; TEMP 97.2
--- NOTE | 2020-04-24 16:39 | DIS ---
DATE OF ADMISSION: 04/20/2020 DATE OF DISCHARGE: 04/22/2020 ATTENDING: Christie Blum MD RESIDENT: Stevenson Oconnor MD CONSULTS: None. PROCEDURES: * Chest x-ray on 04/20 shows no acute pulmonary process. * Chest x-ray on 04/22 shows a small left pneumothorax reportedly. * Chest x-ray on 04/22 shows no evidence of acute cardiopulmonary disease and no pneumothorax seen. * Exercise Stress test on 04/21 was negative. PRIMARY DIAGNOSIS: Atypical chest pain. SECONDARY DIAGNOSES: 1. Diabetes, type 2. 2. Hypertension. 3. Hyperparathyroidism secondary to midline adenoma with hypercalcemia. 4. Anxiety. 5. Hyperlipidemia. 6. Migraine. 7. Weight loss. DISCHARGE MEDICATIONS: Continue home medication of; 1. Metformin 850 mg p.o. b.i.d. 2. Klonopin 0.5 mg p.o. b.i.d. p.r.n. for anxiety. 3. Lisinopril 20 mg p.o. b.i.d. 4. Aspirin 81 mg p.o. q.a.m. 5. Hydroxyzine 25 mg p.o. q.i.d. p.r.n. for anxiety. 6. Glipizide 5 mg p.o. b.i.d. 7. Glargine 30 units subcu q.a.m., which was changed from 24 units or Lantus 30 units subcu q.a.m. DISCONTINUED MEDICATIONS: Propranolol 20 mg p.o. p.r.n. for anxiety. NEW MEDICATIONS: Started on; 1. Propranolol 10 mg p.o. daily. 2. Sertraline 25 mg daily. 3. Atorvastatin 40 mg at bedtime. HISTORY OF PRESENT ILLNESS: The patient is a 49-year-old female with past medical history of diabetes type 2, hypertension, hyperparathyroidism secondary to midline adenoma with hypercalcemia, anxiety, hyperlipidemia, migraine, generalized weakness, panic disorder, who presents for chest pain. She was driving her daughter to work and had coffee. She says after that she felt pressure in her stomach and she felt faint. She says that she pulled into a parking lot and took lisinopril and propranolol 20 mg tab and clonazepam. She says that she checked her blood pressure, it was 160/103 and it was high so she called EMS. She had similar pain 2-3 years ago. When she had this episode, they thought it was related to stress and gave her anxiety medication at the time. The pain feels like pressure in her upper abdomen, where she feels short of breath. The pain goes to her back and left side. The pain previously was 8 to 9/10, now the pain is 0/10. The pain was associated with nausea and dizziness. She states that she has no pain in her abdomen, now it is in her head and knee that she feels tension. The pain was improved by what she was given by EMS, nitroglycerin and Zofran. She states she had stress test 3 to 4 years ago. She states she has never had stents or surgery. Does not believe she has any coronary artery disease at this time. In the ED, she was given Zofran and nitroglycerin paste as well as aspirin. HOSPITAL COURSE: 1. Atypical chest pain in upper abdomen, pressure radiates to the back and left chest, improved with nitroglycerin and Zofran. * Troponin negative x2. * EKG showed no ST changes. * D-dimer ordered for suspicious history, which was negative. * Lipase and amylase and were wnl. 2. Diabetes, type 2. * Continue home medication of Lantus, metformin, and glipizide. * Increased Lantus from 24 to 30 units. 3. Hypertension. * Continue medication of lisinopril. 4. Hyperparathyroidism secondary to midline adenoma with hypercalcemia. * Both inferior parathyroid glands were removed. * The patient no longer has hypercalcemia. 5. Anxiety. * Continue home medication of Klonopin and hydroxyzine. * Started sertraline and propranolol to help with anxiety. Patient was taking the propanolol after an anxiety provoking event causing her blood pressure to drop rapidly, which may have been exacerbating her symptoms. 6. Hyperlipidemia. * Checked the lipid panel from clinic and due to chest pain event started on atorvastatin. 7. Migraine * Not currently on medications. 8. Weight loss. * 14 pounds in 6 months. * She is concerned, needs followup as outpatient. DISCHARGE INSTRUCTIONS: 1. Location: Home. 2. Activity: As tolerated. 3. Diet: Consistent carb, heart healthy. 4. Follow up with [facility] within 7 days of discharge for glycemic control. Followup for chest pain, anxiety, glycemic control, and weight loss. Job ID: [id number] MTDD
== END 2020-04-22 14:14 | disposition home or self-care (01) ==
LOC: ERS 10:37 → ERHOLD 12:11 → 2NO 17:14
PROVIDERS: ADMIT Family Medicine; ATTEND Family Medicine
DX: R07.89 Other chest pain (principal); E11.9 Type 2 diabetes mellitus without complications; I10 Essential (primary) hypertension; D36.7 Benign neoplasm of other specified sites; E21.1 Secondary hyperparathyroidism, not elsewhere classified; E89.2 Postprocedural hypoparathyroidism; F41.9 Anxiety disorder, unspecified; E78.5 Hyperlipidemia, unspecified; G43.909 Migraine, unspecified, not intractable, without status migrainosus; F41.0 Panic disorder [episodic paroxysmal anxiety]; J93.9 Pneumothorax, unspecified; R63.4 Abnormal weight loss; Z68.23 Body mass index [BMI] 23.0-23.9, adult; Z79.4 Long term (current) use of insulin; Z79.82 Long term (current) use of aspirin; Z79.899 Other long term (current) drug therapy; Z88.5 Allergy status to narcotic agent; Z20.828 Contact with and (suspected) exposure to other viral communicable diseases
CPT/HCPCS: 36415; 36416; 71045; 71046; 80048; 80053; 82150; 83690; 84443; 84484; 85025; 85379; 87635; 93017; 96372; G0378; J1650; J1815; U0003

== ENCOUNTER 2020-06-17 13:22 | Emergency (ER) | payer SELFPAY ==
[2020-06-17 13:50] LABS: #Eosinphils 0.1 thou/uL (0.0-0.7); #Lymphocytes 2.7 thou/uL (1.20-3.40); #Monocytes 0.4 thou/uL (0.11-0.59); #Neutrophils 3.8 thou/uL (1.40-6.50); %Basophils 0.7 % (0.0-1.0); %Eosinophils 1.9 % (0.0-10.0); %Lymphocytes 38.5 % (21.0-51.0); %Monocytes 5.1 % (0.0-10.0); %Neutrophils 53.8 % (42.0-75.0); Hemoglobin 14.8 g/dL (12.0-16.0); Mean Corpuscular HGB CONC 34.2 g/dL (32.0-36.0); Mean Corpuscular Hemoglobin 29.6 pg (27.0-31.0); Mean Corpuscular Volume 86.4 fL (78.0-98.0); Mean Platelet Volume 7.5 fL (7.4-10.4); Platelet Count 309 thou/uL (130-400); RBC Distribution Width 11.9 % (11.5-14.5); Red Blood Cell (RBC) Count 5.01 mill/uL (4.20-5.40); White Blood Cell (WBC) Count 7.1 thou/uL (4.8-10.8)
[2020-06-17 13:56] LABS: INR-International Normal Ratio 0.9; PTT 27.4 sec (22.9-36.1); Prothrombin Time 12.5 sec (12.0-14.7)
--- NOTE | 2020-06-17 13:59 | CT ---
Head CT without contrast 06/17/2020: COMPARISON: 02/01/2020 HISTORY: Level 2 stroke, right-sided facial droop TECHNIQUE: Axial CT imaging at 5 mm intervals from vertex through skull base without contrast FINDINGS: The visualized paranasal sinuses and mastoid air cells are well-aerated. No displaced марина rial fracture is seen. There is no intracranial hemorrhage, midline shift, mass effect, or ventricular enlargement. IMPRESSION: No acute findings. Results called to Dr. Clemente at 1:55 PM 06/17/2020
[2020-06-17 14:11] LABS: ALT (SGPT) 15 U/L (8-55); AST (SGOT) 13 U/L (5-34); Albumin 4.5 g/dL (3.5-5.0); Alkaline Phosphatase 102 U/L (40-110); Anion Gap 12 mmol/L (10-20); BUN (Urea Nitrogen) 11 mg/dL (7.0-18.7); Bilirubin, Total 0.5 mg/dL (0.2-1.2); Calc. Creatinine Clearance 0 mL/min (70-130); Calcium 10.9 mg/dL (7.8-10.44); Carbon Dioxide 28 mmol/L (22-29); Chloride 102 mmol/L (98-107); Globulin 3.4 g/dL (2.4-3.5); Glucose 277 mg/dL (70-105); Potassium 4.3 mmol/L (3.5-5.1); Protein, Total 7.9 g/dL (6.0-8.3); Sodium 138 mmol/L (136-145)
--- NOTE | 2020-06-17 15:07 | MRI ---
MRI OF THE BRAIN WITHOUT CONTRAST: 06/17/20 INDICATIONS: Right face weakness. FINDINGS: Ventricles have normal size and position. There is no evidence of restricted diffusion. No evidence o f infarct. No evidence of mass or edema. Scattered white matter hyperintensities are seen in the periventricular and deep white matter of the frontal lobes. These are nonspecific and could represent mild chronic ischemic changes, especially in a patient with history of diabetes and hypertension. No evidence of pathologic white matter abnormal ity. Intracranial internal carotid arteries, cerebral arteries, basilar artery, and dural venous sinuses d emonstrate flow voids. The paranasal sinuses and mastoids appear clear. IMPRESSION: No acute process. POS: OFF
--- NOTE | 2020-07-02 22:17 | EKG ---
Test Reason : Blood Pressure : / mmHG Vent. Rate : 083 BPM Atrial Rate : 083 BPM P-R Int : 182 ms QRS Dur : 096 ms QT Int : 366 ms P-R-T Axes : 020 -13 046 degrees QTc Int : 430 ms Normal sinus rhythm Normal ECG Confirmed by LUKE WALLACE DO ([id number]), editor house organ BRIDGETT HOLMAN ([id number]) on 07/02/2020 10:17:16 PM Referred By: Confirmed By:LUKE WALLACE DO
== END 2020-06-17 15:58 | disposition home or self-care (01) ==
LOC: ERS 13:22
DX: G51.0 Bell's palsy (principal); E11.9 Type 2 diabetes mellitus without complications; I10 Essential (primary) hypertension; Z79.82 Long term (current) use of aspirin; Z79.4 Long term (current) use of insulin; Z79.899 Other long term (current) drug therapy
CPT/HCPCS: 36416; 70450; 70551; 80053; 85025; 85610; 85730; 93005

== ENCOUNTER 2021-06-18 17:17 | Emergency (ER) | payer SELFPAY | END 2021-06-18 18:01 | disposition home or self-care (01) | LOC: ERS 17:17 | DX: R23.2 Flushing (principal); R00.2 Palpitations; T46.7X5A Adverse effect of peripheral vasodilators, initial encounter; I10 Essential (primary) hypertension; E11.9 Type 2 diabetes mellitus without complications; Z79.82 Long term (current) use of aspirin; Z79.4 Long term (current) use of insulin; Z79.899 Other long term (current) drug therapy | CPT/HCPCS: 93005 ==

== ENCOUNTER 2022-04-03 14:36 | Emergency (ER) | payer SELFPAY ==
[2022-04-03 15:20] LABS: #Basophils 0.1 thou/uL (0.0-0.2); #Eosinphils 0.2 thou/uL (0.0-0.7); #Monocytes 0.4 thou/uL (0.11-0.59); #Neutrophils 3.7 thou/uL (1.40-6.50); %Basophils 1.4 % (0.0-1.0); %Eosinophils 2.1 % (0.0-10.0); %Lymphocytes 47.5 % (21.0-51.0); %Monocytes 5.1 % (0.0-10.0); Hemoglobin 14.4 g/dL (12.0-16.0); Mean Corpuscular HGB CONC 34.4 g/dL (32.0-36.0); Mean Corpuscular Hemoglobin 30.4 pg (27.0-31.0); Mean Corpuscular Volume 88.3 fl (78.0-98.0); Platelet Count 268 10x3/uL (130-400); RBC Distribution Width 12.1 % (11.5-14.5); Red Blood Cell (RBC) Count 4.75 mill/uL (4.20-5.40); White Blood Cell (WBC) Count 8.4 10x3/uL (4.8-10.8)
[2022-04-03] MEDS ORDERED: Lorazepam 2 MG/ML VIAL ONE (15:33)
[2022-04-03 15:44] LABS: ALT (SGPT) 24 U/L (8-55); AST (SGOT) 15 U/L (5-34); Albumin 4.5 g/dL (3.5-5.0); Alkaline Phosphatase 98 U/L (40-110); Anion Gap 15 mmol/L (10-20); BUN (Urea Nitrogen) 14 mg/dL (7.0-18.7); Bilirubin, Total 0.5 mg/dL (0.2-1.2); Calc. Creatinine Clearance 0 mL/min (70-130); Calcium 11.5 mg/dL (7.8-10.44); Carbon Dioxide 22 mmol/L (22-29); Chloride 106 mmol/L (98-107); Estimated GFR 97; Globulin 3.4 g/dL (2.4-3.5); Glucose 173 mg/dL (70-105); Lipase 20 U/L (8-78); Potassium 3.7 mmol/L (3.5-5.1); Protein, Total 7.9 g/dL (6.0-8.3); Sodium 139 mmol/L (136-145)
== END 2022-04-03 16:50 | disposition home or self-care (01) ==
LOC: ERS 14:36
DX: F41.1 Generalized anxiety disorder (principal); E11.9 Type 2 diabetes mellitus without complications; I10 Essential (primary) hypertension; Z79.899 Other long term (current) drug therapy
CPT/HCPCS: 36415; 36416; 80053; 83690; 84484; 85025; 93005; 94760; 96374; J2060

== ENCOUNTER 2022-06-25 20:34 | Emergency (ER) | payer SELFPAY ==
[2022-06-25 21:10] LABS: #Basophils 0.1 thou/uL (0.0-0.2); #Eosinphils 0.2 thou/uL (0.0-0.7); #Monocytes 0.4 thou/uL (0.11-0.59); #Neutrophils 3.8 thou/uL (1.40-6.50); %Basophils 1.2 % (0.0-1.0); %Eosinophils 2.8 % (0.0-10.0); %Lymphocytes 39.7 % (21.0-51.0); %Monocytes 4.9 % (0.0-10.0); %Neutrophils 51.5 % (42.0-75.0); Hemoglobin 14.3 g/dL (12.0-16.0); Mean Corpuscular Hemoglobin 29.6 pg (27.0-31.0); Mean Corpuscular Volume 86.9 fl (78.0-98.0); Mean Platelet Volume 7.8 fL (7.4-10.4); Platelet Count 303 10x3/uL (130-400); Red Blood Cell (RBC) Count 4.85 mill/uL (4.20-5.40); White Blood Cell (WBC) Count 7.5 10x3/uL (4.8-10.8)
[2022-06-25 21:38] LABS: ALT (SGPT) 24 U/L (8-55); AST (SGOT) 15 U/L (5-34); Albumin 4.4 g/dL (3.5-5.0); Alkaline Phosphatase 109 U/L (40-110); Anion Gap 12 mmol/L (10-20); BUN (Urea Nitrogen) 16 mg/dL (9.8-20.1); Bilirubin, Total 0.5 mg/dL (0.2-1.2); Calc. Creatinine Clearance 0 mL/min (70-130); Calcium 10.8 mg/dL (7.8-10.44); Carbon Dioxide 24 mmol/L (22-29); Chloride 105 mmol/L (98-107); Estimated GFR 103; Globulin 3.4 g/dL (2.4-3.5); Glucose 283 mg/dL (70-105); Potassium 3.9 mmol/L (3.5-5.1); Protein, Total 7.8 g/dL (6.0-8.3); Sodium 137 mmol/L (136-145)
[2022-06-25] MEDS ORDERED: Aspirin Chewable 81 MG TAB ONE (22:09)
[2022-06-25] MEDS ORDERED: Nitroglycerin 2% Ointment 1 INCH/1 GM Packet ONE (22:09)
[2022-06-26 00:24] LABS: Troponin I Less than 0.010 ng/mL (< 0.028)
== END 2022-06-26 01:24 | disposition home or self-care (01) ==
LOC: ERS 20:34 → ERHOLD 23:34 → UNDOADMOB 23:34 → ERS 06-26 01:24
DX: R07.2 Precordial pain (principal); R00.2 Palpitations; E11.9 Type 2 diabetes mellitus without complications; I10 Essential (primary) hypertension; E78.5 Hyperlipidemia, unspecified; Z79.4 Long term (current) use of insulin; Z79.899 Other long term (current) drug therapy
CPT/HCPCS: 36415; 71045; 80053; 83690; 84484; 85025; 93005

== ENCOUNTER 2023-03-01 01:14 | Emergency (ER) | payer SELFPAY ==
[2023-03-01 01:55] LABS: #Basophils 0.1 thou/uL (0.0-0.2); #Eosinphils 0.2 thou/uL (0.0-0.7); #Monocytes 0.4 thou/uL (0.11-0.59); #Neutrophils 2.6 thou/uL (1.40-6.50); %Eosinophils 3.7 % (0.0-10.0); %Lymphocytes 42.9 % (21.0-51.0); %Monocytes 7.2 % (0.0-10.0); %Neutrophils 44.9 % (42.0-75.0); Hematocrit 40.7 % (36.0-47.0); Hemoglobin 14.1 g/dL (12.0-16.0); Mean Corpuscular HGB CONC 34.6 g/dL (32.0-36.0); Mean Corpuscular Hemoglobin 29.6 pg (27.0-31.0); Mean Corpuscular Volume 85.5 fl (78.0-98.0); Mean Platelet Volume 9.6 fL (7.4-10.4); Platelet Count 292 10x3/uL (130-400); RBC Distribution Width 12.6 % (11.5-14.5); Red Blood Cell (RBC) Count 4.76 mill/uL (4.20-5.40); White Blood Cell (WBC) Count 5.9 10x3/uL (4.8-10.8)
[2023-03-01] MEDS ORDERED: Labetalol HCl 100 MG/20 ML VIAL ONE ×2 (02:25→02:27)
[2023-03-01] MEDS ORDERED: Famotidine/PF 20 mg/2ml Vial ONE (03:25)
[2023-03-01 04:19] LABS: Albumin 4.3 g/dL (3.5-5.0); Chloride 103 mmol/L (98-107); Potassium 3.5 mmol/L (3.5-5.1); Sodium 137 mmol/L (136-145); Troponin I Less than 0.010 ng/mL (< 0.028)
[2023-03-01 04:20] LABS: ALT (SGPT) 36 U/L (8-55); AST (SGOT) 20 U/L (5-34); Alkaline Phosphatase 98 U/L (40-110); Anion Gap 14 mmol/L (10-20); BUN (Urea Nitrogen) 11 mg/dL (9.8-20.1); Bilirubin, Total 0.6 mg/dL (0.2-1.2); Calc. Creatinine Clearance 0 mL/min (70-130); Carbon Dioxide 24 mmol/L (22-29); Estimated GFR 105; Globulin 3.3 g/dL (2.4-3.5); Glucose 261 mg/dL (70-105); Lipase 16 U/L (8-78); Protein, Total 7.6 g/dL (6.0-8.3)
[2023-03-01 04:25] LABS: Magnesium 2.1 mg/dL (1.6-2.6)
[2023-03-01] MEDS ORDERED: Iopamidol 370 76% 100 ML VIAL ONE (09:54)
== END 2023-03-01 04:55 | disposition home or self-care (01) ==
LOC: ERS 01:14
DX: R10.13 Epigastric pain (principal); E11.9 Type 2 diabetes mellitus without complications; I10 Essential (primary) hypertension; E78.5 Hyperlipidemia, unspecified; Z79.899 Other long term (current) drug therapy; Z79.84 Long term (current) use of oral hypoglycemic drugs; Z79.4 Long term (current) use of insulin; Z79.82 Long term (current) use of aspirin
CPT/HCPCS: 36415; 71045; 71275; 74174; 80053; 83605; 83690; 83735; 83880; 84484; 85025; 93005; Q9967; S0028

== ENCOUNTER 2023-07-22 16:41 | Emergency (ER) | payer SELFPAY ==
[2023-07-22 19:10] LABS: Bacteria/HPF None Seen HPF (None Seen); Bilirubin Negative (Negative); Blood, Urine Negative (Negative); CAUTI Indications for Culture Pelvic or flank pain; Clarity Clear (Clear); Glucose, Urine (Dipstick) >=1000 mg/dL (Negative); Ketone, Urine Negative (Negative); Leukocyte Negative Leu/uL (Negative); Nitrite Negative (Negative); Protein, Urine (Dipstick) 20 mg/dL (Neg-Trace); RBC/HPF 0-3 HPF (0-3); Specific Gravity, Urine 1.029 (1.002-1.036); Squamous Epithelial 0-3 HPF (0-3); Urobilinogen Normal mg/dL (Less than 2); WBC/HPF 0-3 HPF (0-3)
[2023-07-22 19:15] LABS: Urine Culture Reflex No No
[2023-07-22 19:34] LABS: Influenza A by NAA Not Detected (NotDetected); Influenza B by NAA Not Detected (NotDetected); SARS-CoV-2 NAA Rapid Test Not Detected (NotDetected)
[2023-07-22 20:06] LABS: #Eosinphils 0.3 thou/uL (0.0-0.7); #Monocytes 0.6 thou/uL (0.11-0.59); #Neutrophils 3.6 thou/uL (1.40-6.50); %Basophils 0.6 % (0.0-1.0); %Eosinophils 4.5 % (0.0-10.0); %Lymphocytes 34.2 % (21.0-51.0); %Neutrophils 52.6 % (42.0-75.0); Hematocrit 39.4 % (36.0-47.0); Hemoglobin 13.6 g/dL (12.0-16.0); Mean Corpuscular HGB CONC 34.5 g/dL (32.0-36.0); Mean Corpuscular Volume 86.8 fl (78.0-98.0); Mean Platelet Volume 9.8 fL (7.4-10.4); Platelet Count 287 10x3/uL (130-400); Red Blood Cell (RBC) Count 4.54 mill/uL (4.20-5.40); White Blood Cell (WBC) Count 6.9 10x3/uL (4.8-10.8)
[2023-07-22 20:32] LABS: Troponin I Less than 0.010 ng/mL (< 0.028)
[2023-07-22 21:49] LABS: ALT (SGPT) 22 U/L (8-55); AST (SGOT) 13 U/L (5-34); Albumin 4.4 g/dL (3.5-5.0); Alkaline Phosphatase 113 U/L (40-110); Anion Gap 12 mmol/L (10-20); BUN (Urea Nitrogen) 15 mg/dL (9.8-20.1); Bilirubin, Total 0.7 mg/dL (0.2-1.2); Calc. Creatinine Clearance 0 mL/min (70-130); Calcium 10.5 mg/dL (7.8-10.44); Carbon Dioxide 25 mmol/L (22-29); Chloride 105 mmol/L (98-107); Estimated GFR 104; Globulin 2.8 g/dL (2.4-3.5); Glucose 225 mg/dL (70-105); Potassium 4.3 mmol/L (3.5-5.1); Protein, Total 7.2 g/dL (6.0-8.3); Sodium 138 mmol/L (136-145)
== END 2023-07-22 22:36 | disposition home or self-care (01) ==
LOC: ERS 16:41
DX: S29.011A Strain of muscle and tendon of front wall of thorax, initial encounter (principal); E11.9 Type 2 diabetes mellitus without complications; E78.5 Hyperlipidemia, unspecified; I10 Essential (primary) hypertension; X50.0XXA Overexertion from strenuous movement or load, initial encounter
CPT/HCPCS: 36415; 71046; 80053; 81001; 84484; 85025; 93005

== ENCOUNTER 2024-02-26 11:31 | Emergency (ER) | payer SELFPAY ==
[2024-02-26] MEDS ORDERED: Acetaminophen 500 MG TAB ONE (13:09)
[2024-02-26] MEDS ORDERED: Ketorolac Tromethamine 30 MG (1 mL) VIAL ONE (13:09)
[2024-02-26] MEDS ORDERED: Metoclopramide HCl 10 MG (2 mL) VIAL ONE (13:12)
== END 2024-02-26 13:40 | disposition home or self-care (01) ==
LOC: ERS 11:31
DX: J32.9 Chronic sinusitis, unspecified (principal); F41.9 Anxiety disorder, unspecified; E11.9 Type 2 diabetes mellitus without complications; I10 Essential (primary) hypertension; E78.5 Hyperlipidemia, unspecified; Z79.899 Other long term (current) drug therapy; Z79.4 Long term (current) use of insulin; Z79.84 Long term (current) use of oral hypoglycemic drugs
CPT/HCPCS: 70450; 96372; J1885; J2765